=== PATIENT | male | born 1975 | race Caucasian/White ===

== ENCOUNTER → 2016-12-25 | Outpatient (CLI) | payer OTHER ==
[~2016-12-25] MED LIST: GABAPENTIN600 MG PO; OPANA ER10 MG PO; OXYCODONE HCL10 MG PO; ZANAFLEX4 MG PO
== END | disposition home or self-care (01) ==
LOC: AMB 12-08 13:00
DX: M54.42 Lumbago with sciatica, left side (principal); Z98.1 Arthrodesis status
CPT/HCPCS: 62304; 72132

== ENCOUNTER 2017-10-16 22:16 | Emergency (ER) | payer SELFPAY ==
[~2017-10-16] VITALS: Ht 175.3 cm; Wt 83.2 kg
[2017-10-17] MEDS ORDERED: PERCOCET 5/31 TABLET PO (00:27)
[2017-10-17 00:46] VITALS: BP 163/76
== END 2017-10-17 00:46 | disposition home or self-care (01) ==
LOC: EME 22:16
PROC: 2W3MX1Z Immobilization of Left Lower Extremity using Splint (ICD-10-PCS; principal; 2017-10-17)
DX: S92.352A Displaced fracture of fifth metatarsal bone, left foot, initial encounter for closed fracture (principal); X50.1XXA Overexertion from prolonged static or awkward postures, initial encounter; Y93.01 Activity, walking, marching and hiking; Z88.0 Allergy status to penicillin
CPT/HCPCS: 73630; 99281; 99284